=== PATIENT | female | born 1975 | race Caucasian/White ===

== ENCOUNTER 2017-12-20 15:02 | Emergency (ER) | payer BC, SELFPAY ==
[2017-12-20 15:12] VITALS: BP 158/87; PULSE 99; RESP 18; TEMP 36.9; O2SAT 100; BMI 30.2
--- NOTE | 2017-12-20 15:29 | ED.NEUROSD ---
HPI - Neuro Symptoms/Deficit <GLENIS Machuca - Last Filed: 12/20/17 21:49> General Chief Complaint: Neuro Symptoms/Deficit Stated Complaint: RT SIDED NUMBNESS Time Seen by Provider: 12/20/17 15:29 History of Present Illness HPI Narrative: 42-year-old female here for complaint of having tingling into her right arm and her right leg that has been going on for the last 4-5 days. She states that she had a manipulation completed by her chiropractor and shortly after her symptoms started. She is able to ambulate into the emergency room without complications. She denies any headache. She denies any neck pain. No chest pain no shortness of breath. She has full range of motion of all her extremities and her neck. No other concerns or complaints. She denies any stressors or relievers of her symptoms On Anticoagulants: No Related Data Home Medications Medication Instructions Recorded Confirmed No Known Home Medications 12/20/17 12/20/17 Allergies Allergy/AdvReac Type Severity Reaction Status Date / Time No Known Drug Allergies Allergy Verified 12/20/17 15:14 Review of Systems <GLENIS Machuca - Last Filed: 12/20/17 21:49> Review of Systems Constitutional Denies chills, Denies fever(s), Denies lethargy and Denies weakness Eyes Denies change in vision, Denies eye discharge, Denies irritation and Denies loss of vision ENT Ears, Nose, Mouth, and Throat: Denies change in voice, Denies neck pain and Denies sore throat Cardiovascular Denies chest pain, Denies irregular heart rhythm, Denies lightheadedness, Denies palpitations, Denies dyspnea, Denies dyspnea on exertion and Denies orthopnea Respiratory Denies cough, Denies dyspnea, Denies dyspnea on exertion and Denies wheezing Gastrointestinal Gastrointestinal: Denies abdominal pain, Denies change in bowel habits, Denies diarrhea, Denies nausea and Denies vomiting Genitourinary Denies hematuria, Denies flank pain, Denies urinary incontinence and Denies urinary urgency Musculoskeletal Denies neck pain Comments: Tingling to right upper and right lower extremity Integumentary/Breasts Denies pruritus, Denies erythema, Denies rash and Denies wounds Neurologic Denies confusion, Denies loss of vision and Denies weakness Psychiatric Denies anxiety, Denies confusion, Denies depression, Denies homicidal ideation and Denies suicidal ideation Endocrine Denies palpitations Allergic/Immunologic Denies wheezing Exam <GLENIS Machuca - Last Filed: 12/20/17 21:49> Initial Vital Signs Initial Vital Signs: Vital Signs Temperature 98.4 F 12/20/17 15:12 Pulse Rate 99 H 12/20/17 15:12 Respiratory Rate 18 12/20/17 15:12 Blood Pressure 158/87 H 12/20/17 15:12 Pulse Oximetry 100 12/20/17 15:12 Const General: cooperative and well developed Nutritional Appearance: well nourished Orientation: alert, awake, oriented x3 and not confused HENMT Head: normal to inspection, normocephalic and atraumatic Ears: external ears normal and TM's normal bilaterally Mouth: oral mucosae normal, oropharynx normal and moist mucous membranes Teeth and gingiva: dentition normal Throat: posterior oropharynx normal Eyes Conjunctivae: conjunctivae normal Sclera: sclerae normal Pupils: PERRL EOM: EOM intact bilaterally Neck Neck: normal visual inspection, trachea midline, No lymphadenopathy, No midline deformity and No JVD Lymphatic: No lymphedema Chest Chest: normal inspection of the chest Resp Effort & Inspection: normal respiratory effort, able to speak in complete sentences, no respiratory distress and no use of accessory muscles Auscultation: clear to auscultation bilaterally, no rales, no rhonchi and no wheezes Cardio Rate: regular rate Rhythm: regular rhythm Heart Sounds: no click, no gallops, no murmurs and no rubs Pulses: normal peripheral pulses Skin General: no rashes or lesions noted, No jaundice and No petechiae Neuro General: alert, awake, oriented x3, no focal motor deficits and CN's II-XI intact bilaterally Cognition: normal cognition Speech: speech normal Gait: normal gait Motor: muscle tone normal throughout Sensory Exam: no sensory deficits noted DTR's: Rt Patellar: 1+ and Lt Patellar: 1+ Extrem Other: Distal sensation to all 4 extremities is intact. Distal pulses are intact. Full range of motion to all 4 extremities. <Gera Flores DO - Last Filed: 12/21/17 07:16> Initial Vital Signs Initial Vital Signs: Vital Signs Temperature 98.4 F 12/20/17 15:12 Pulse Rate 99 H 12/20/17 15:12 Respiratory Rate 18 12/20/17 15:12 Blood Pressure 158/87 H 12/20/17 15:12 Pulse Oximetry 100 12/20/17 15:12 Course <GLENIS Machuca - Last Filed: 12/20/17 21:49> Orders Ordered: Discontinued Medications Sodium Chloride (Normal Saline 0.9%) 1,000 mls @ 150 mls/hr IV CONT MOHINDER Last Infusion: 12/20/17 17:43 Dose: 150 mls/hr Admin: 12/20/17 16:13 Dose: 150 mls/hr Vital Signs - 8 hr 12/20/17 15:12 12/20/17 16:16 12/20/17 17:22 Temperature 98.4 F Pulse Rate 99 H 92 H 63 Respiratory Rate 18 Blood Pressure 158/87 H Blood Pressure [Right Arm] 125/99 H 117/69 Pulse Oximetry 100 98 99 <Gera Flores DO - Last Filed: 12/21/17 07:16> Orders Ordered: Discontinued Medications Sodium Chloride (Normal Saline 0.9%) 1,000 mls @ 150 mls/hr IV CONT MOHINDER Last Infusion: 12/20/17 17:43 Dose: 150 mls/hr Admin: 12/20/17 16:13 Dose: 150 mls/hr Vital Signs - 8 hr 12/20/17 15:12 12/20/17 16:16 12/20/17 17:22 Temperature 98.4 F Pulse Rate 99 H 92 H 63 Respiratory Rate 18 Blood Pressure 158/87 H Blood Pressure [Right Arm] 125/99 H 117/69 Pulse Oximetry 100 98 99 MDM - Neuro Symptoms/Deficit <GLENIS Machuca - Last Filed: 12/20/17 21:49> Lab Data Result diagrams: 12/20/17 15:50 12/20/17 15:50 Lab Results 12/20/17 12/20/17 Range/Units 15:50 15:50 WBC 11.1 H (4.5-11.0) X10^3/uL RBC 4.68 (4.0-5.2) X10^6/uL Hgb 14.2 (12.0-16.0) g/dL Hct 40.5 (36-46) % MCV 86.3 (80-100) fL MCH 30.2 (26-34) PG MCHC 35.0 (30-36) % RDW 12.4 (11.6-14.8) % Plt Count 258 (150-400) X10^3/uL Neut % (Auto) 70.6 (50-75) % Lymph % (Auto) 23.9 L (25-40) % [place] % (Auto) 4.1 (3-14) % Eos % (Auto) 0.8 L (2-4) % Baso % (Auto) 0.6 (0-2) % Neut # (Auto) 7900 H (1139-1114) /uL Sodium 145 (137-145) mmol/L Potassium 3.9 (3.4-5.1) mmol/L Chloride 108 H (98-107) mmol/L Carbon Dioxide 26 (22-32) mmol/L BUN 12 (7-17) mg/dL Creatinine 0.80 (0.52-1.04) mg/dL Estimated GFR > 60.0 (>60) mL/min BUN/Creatinine Ratio 15.0 (6-22) Glucose 91 (70-100) mg/dL Calcium 9.8 (8.4-10.2) mg/dL Total Bilirubin 0.7 (0.2-1.3) mg/dL AST 18 (14-36) IU/L ALT 22 (9-52) IU/L Alkaline Phosphatase 61 (38-126) U/L Total Creatine Kinase 62 (30-135) U/L Troponin I < 0.012 (0.01-0.034) ng/mL Total Protein 7.5 (6.3-8.2) g/dL Albumin 4.4 (3.5-5.0) g/dL Globulin 3.1 (1.7-4.1) g/dL Albumin/Globulin Ratio 1.4 (1.0-2.8) Imaging Data Chest x-ray: Radiologist's impression: Signed Patient: Shanel Nieves MR#: [id number] : 1975 Acct:[id number] Age/Sex: 42 / F Date of Service: 12/20/17 Loc: ED Accession Number: [id number] Procedure: XR chest 1V Ordering Provider: León Degroot PROCEDURE: XR CHEST 1V INDICATIONS: Tingling to right arm and right leg TECHNIQUE: One view of the chest was acquired. COMPARISON: None. FINDINGS: Surgical changes and devices: None. Lungs and pleura: No pleural effusions or pneumothorax. Lungs are clear. Mediastinum: Mediastinal contours appear normal. Heart size is normal. Bones and chest wall: No suspicious bony lesions. The minimal spondylosis T7-8 and T9-10 on the right, T8-T9 on the left. Overlying soft tissues appear unremarkable. IMPRESSION: No acute cardiopulmonary abnormality. Mild thoracic degenerative change. Dictated by: Obinna Sierra M.D. on 12/20/2017 at 15:49 Approved by: Obinna Sierra M.D. on 12/20/2017 at 15:51 CT scan - head: Radiologist's impression: PROCEDURE: CT ANGIO HEAD AND NECK INDICATIONS: Tingling to right arm and right leg TECHNIQUE: Pre-contrast 4.5 mm thick sections acquired from the foramen magnum to the vertex. After the administration of intravenous contrast, 1 mm thick sections acquired from the aortic arch through the [place] of [place]. Post-contrast 4.5 mm thick sections then re-acquired from the foramen magnum to the vertex. 3-dimensional lxlwaew-tjtabzkgg-iahsjzuhkm (MIP) and/or volume rendering reformats were acquired of the central intracranial vasculature and neck separately. COMPARISON: None. FINDINGS: Image quality: Excellent. BRAIN: CSF spaces: Ventricles are normal in size and shape. Basal cisterns are patent. No extra-axial fluid collections. Brain: No midline shift. No intracranial bleeds or masses. Mauricio-white matter interface appears intact. Skull and face: Calvarium and facial bones appear intact, without suspicious lesions. Orbits appear normal. Sinuses: Sinuses and mastoids are clear. HEAD CT ANGIOGRAPHY: Anterior circulation: Intracranial internal carotid arteries are normal in size and flow. The flow within the paired anterior cerebral arteries is normal and symmetric. The flow within the middle cerebral arteries is normal and symmetric. The anterior communicating artery is seen. No aneurysms are seen. Posterior circulation: Visualized portions of the vertebral arteries demonstrate normal caliber, and join to form a normal appearing basilar artery. Flow within the posterior cerebral arteries is normal and symmetric. No aneurysms are seen. NECK CT ANGIOGRAPHY: Carotid system: The great vessels demonstrate a conventional anatomy as they arise from the aortic arch. The origins of the common carotid arteries appear patent. The common carotid arteries demonstrate normal caliber and courses. The bifurcation regions are both widely patent. The internal carotid arteries demonstrate normal calibers and courses. Posterior circulation: The origins of the vertebral arteries both appear widely patent. The more superior extracranial portions of both vertebral arteries also demonstrate normal courses and calibers. They join to form a normal appearing basilar artery. Soft tissues: Visualized neck soft tissues demonstrate no suspicious abnormalities. Bones: No suspicious bony lesions. Visualized cervical spine appears normally aligned. IMPRESSION: 1. No acute intracranial process. 2. No areas of hemodynamically significant stenosis, vascular occlusion or aneurysmal dilation within the anterior circulation. 3. No areas of hemodynamically significant stenosis, vascular occlusion or aneurysmal dilation within the posterior circulation. 4. No areas of hemodynamically significant stenosis, vascular occlusion or aneurysmal dilation within the neck vasculature. Any quantitative measurements of stenosis were performed using NASCET criteria. Dictated by: Catalina Berumen M.D. on 12/20/2017 at 16:54 Approved by: Catalina Berumen M.D. on 12/20/2017 at 17:00 ECG Data Interpretation: EKG shows normal sinus rhythm with no ST elevation or depression. No ectopy. Ventricular rate is 79. Pr interval 146. QRS duration 92. QTC of 381 MDM Narrative Medical decision making narrative: CBC shows slightly elevated white count at 11 K otherwise was unremarkable. Chem panel was also unremarkable. Troponin was obtained and was negative. EKG shows normal sinus rhythm with no ST elevation or depression. Chest x-ray was obtained and was negative for any acute findings. CT a of head and neck were obtained and were negative for any acute findings. No emergent cause of her tingling to her right arm and leg are seen recommend following up with primary care provider. If continued symptoms MRI of neck and lumbar spine may be needed. Will have her follow up with her primary care provider in the next several days. For any worsening symptoms return to the emergency room. [id number] Tylenol or Motrin as needed for discomfort. <Gera Flores, - Last Filed: 12/21/17 07:16> Lab Data Lab Results 12/20/17 12/20/17 Range/Units 15:50 15:50 WBC 11.1 H (4.5-11.0) X10^3/uL RBC 4.68 (4.0-5.2) X10^6/uL Hgb 14.2 (12.0-16.0) g/dL Hct 40.5 (36-46) % MCV 86.3 (80-100) fL MCH 30.2 (26-34) PG MCHC 35.0 (30-36) % RDW 12.4 (11.6-14.8) % Plt Count 258 (150-400) X10^3/uL Neut % (Auto) 70.6 (50-75) % Lymph % (Auto) 23.9 L (25-40) % [place] % (Auto) 4.1 (3-14) % Eos % (Auto) 0.8 L (2-4) % Baso % (Auto) 0.6 (0-2) % Neut # (Auto) 7900 H (0424-5159) /uL Sodium 145 (137-145) mmol/L Potassium 3.9 (3.4-5.1) mmol/L Chloride 108 H (98-107) mmol/L Carbon Dioxide 26 (22-32) mmol/L BUN 12 (7-17) mg/dL Creatinine 0.80 (0.52-1.04) mg/dL Estimated GFR > 60.0 (>60) mL/min BUN/Creatinine Ratio 15.0 (6-22) Glucose 91 (70-100) mg/dL Calcium 9.8 (8.4-10.2) mg/dL Total Bilirubin 0.7 (0.2-1.3) mg/dL AST 18 (14-36) IU/L ALT 22 (9-52) IU/L Alkaline Phosphatase 61 (38-126) U/L Total Creatine Kinase 62 (30-135) U/L Troponin I < 0.012 (0.01-0.034) ng/mL Total Protein 7.5 (6.3-8.2) g/dL Albumin 4.4 (3.5-5.0) g/dL Globulin 3.1 (1.7-4.1) g/dL Albumin/Globulin Ratio 1.4 (1.0-2.8) Discharge Plan Departure Patient Disposition: Home, Self-Care Clinical Impression: Arm paresthesia, right, Paresthesia of right leg Discharge Date/Time: 12/20/17 17:32 Interventions: ED Discharge Assessment Last Done: 12/20/17 17:44 Instructions: DI for Numbness/tingling Activity Restrictions/Additional Instructions: Imaging EKG and laboratory results today were unremarkable. Use [id number] Tylenol Motrin as needed for any discomfort. Follow up with her primary care provider next week for further evaluation and treatment. If still having symptoms recommend having discussion with her primary care provider about ordering MRI to rule out radiculopathy as a cause of her symptoms. For any worsening symptoms return to the emergency room. Prescriptions: No Action No Known Home Medications RF: 0 Referrals: Harmeet Razo MD [Primary Care Provider] - <Gera Flores DO - Last Filed: 12/21/17 07:16> [facility] ED Attending Viralature Attestation: I was available for consultation during this patient's emergency department encounter
--- NOTE | 2017-12-20 15:57 | ED_ITS ---
HPI - Neuro Symptoms/Deficit <GLENIS Machuca - Last Filed: 12/20/17 21:49> General Chief Complaint: Neuro Symptoms/Deficit Stated Complaint: RT SIDED NUMBNESS Time Seen by Provider: 12/20/17 15:29 History of Present Illness HPI Narrative: 42-year-old female here for complaint of having tingling into her right arm and her right leg that has been going on for the last 4-5 days. She states that she had a manipulation completed by her chiropractor and shortly after her symptoms started. She is able to ambulate into the emergency room without complications. She denies any headache. She denies any neck pain. No chest pain no shortness of breath. She has full range of motion of all her extremities and her neck. No other concerns or complaints. She denies any stressors or relievers of her symptoms On Anticoagulants: No Related Data Home Medications Medication Instructions Recorded Confirmed No Known Home Medications 12/20/17 12/20/17 Allergies Allergy/AdvReac Type Severity Reaction Status Date / Time No Known Drug Allergies Allergy Verified 12/20/17 15:14 Review of Systems <GLENIS Machuca - Last Filed: 12/20/17 21:49> Review of Systems Constitutional Denies chills, Denies fever(s), Denies lethargy and Denies weakness Eyes Denies change in vision, Denies eye discharge, Denies irritation and Denies loss of vision ENT Ears, Nose, Mouth, and Throat: Denies change in voice, Denies neck pain and Denies sore throat Cardiovascular Denies chest pain, Denies irregular heart rhythm, Denies lightheadedness, Denies palpitations, Denies dyspnea, Denies dyspnea on exertion and Denies orthopnea Respiratory Denies cough, Denies dyspnea, Denies dyspnea on exertion and Denies wheezing Gastrointestinal Gastrointestinal: Denies abdominal pain, Denies change in bowel habits, Denies diarrhea, Denies nausea and Denies vomiting Genitourinary Denies hematuria, Denies flank pain, Denies urinary incontinence and Denies urinary urgency Musculoskeletal Denies neck pain Comments: Tingling to right upper and right lower extremity Integumentary/Breasts Denies pruritus, Denies erythema, Denies rash and Denies wounds Neurologic Denies confusion, Denies loss of vision and Denies weakness Psychiatric Denies anxiety, Denies confusion, Denies depression, Denies homicidal ideation and Denies suicidal ideation Endocrine Denies palpitations Allergic/Immunologic Denies wheezing Exam <GLENIS Machuca - Last Filed: 12/20/17 21:49> Initial Vital Signs Initial Vital Signs: Vital Signs Temperature 98.4 F 12/20/17 15:12 Pulse Rate 99 H 12/20/17 15:12 Respiratory Rate 18 12/20/17 15:12 Blood Pressure 158/87 H 12/20/17 15:12 Pulse Oximetry 100 12/20/17 15:12 Const General: cooperative and well developed Nutritional Appearance: well nourished Orientation: alert, awake, oriented x3 and not confused HENMT Head: normal to inspection, normocephalic and atraumatic Ears: external ears normal and TM's normal bilaterally Mouth: oral mucosae normal, oropharynx normal and moist mucous membranes Teeth and gingiva: dentition normal Throat: posterior oropharynx normal Eyes Conjunctivae: conjunctivae normal Sclera: sclerae normal Pupils: PERRL EOM: EOM intact bilaterally Neck Neck: normal visual inspection, trachea midline, No lymphadenopathy, No midline deformity and No JVD Lymphatic: No lymphedema Chest Chest: normal inspection of the chest Resp Effort & Inspection: normal respiratory effort, able to speak in complete sentences, no respiratory distress and no use of accessory muscles Auscultation: clear to auscultation bilaterally, no rales, no rhonchi and no wheezes Cardio Rate: regular rate Rhythm: regular rhythm Heart Sounds: no click, no gallops, no murmurs and no rubs Pulses: normal peripheral pulses Skin General: no rashes or lesions noted, No jaundice and No petechiae Neuro General: alert, awake, oriented x3, no focal motor deficits and CN's II-XI intact bilaterally Cognition: normal cognition Speech: speech normal Gait: normal gait Motor: muscle tone normal throughout Sensory Exam: no sensory deficits noted DTR's: Rt Patellar: 1+ and Lt Patellar: 1+ Extrem Other: Distal sensation to all 4 extremities is intact. Distal pulses are intact. Full range of motion to all 4 extremities. <Gera Flores DO - Last Filed: 12/21/17 07:16> Initial Vital Signs Initial Vital Signs: Vital Signs Temperature 98.4 F 12/20/17 15:12 Pulse Rate 99 H 12/20/17 15:12 Respiratory Rate 18 12/20/17 15:12 Blood Pressure 158/87 H 12/20/17 15:12 Pulse Oximetry 100 12/20/17 15:12 Course <GLENIS Machuca - Last Filed: 12/20/17 21:49> Orders Ordered: Discontinued Medications Sodium Chloride (Normal Saline 0.9%) 1,000 mls @ 150 mls/hr IV CONT MOHINDER Last Infusion: 12/20/17 17:43 Dose: 150 mls/hr Admin: 12/20/17 16:13 Dose: 150 mls/hr Vital Signs - 8 hr 12/20/17 15:12 12/20/17 16:16 12/20/17 17:22 Temperature 98.4 F Pulse Rate 99 H 92 H 63 Respiratory Rate 18 Blood Pressure 158/87 H Blood Pressure [Right Arm] 125/99 H 117/69 Pulse Oximetry 100 98 99 <Gera Flores DO - Last Filed: 12/21/17 07:16> Orders Ordered: Discontinued Medications Sodium Chloride (Normal Saline 0.9%) 1,000 mls @ 150 mls/hr IV CONT MOHINDER Last Infusion: 12/20/17 17:43 Dose: 150 mls/hr Admin: 12/20/17 16:13 Dose: 150 mls/hr Vital Signs - 8 hr 12/20/17 15:12 12/20/17 16:16 12/20/17 17:22 Temperature 98.4 F Pulse Rate 99 H 92 H 63 Respiratory Rate 18 Blood Pressure 158/87 H Blood Pressure [Right Arm] 125/99 H 117/69 Pulse Oximetry 100 98 99 MDM - Neuro Symptoms/Deficit <GLENIS Machuca - Last Filed: 12/20/17 21:49> Lab Data Result diagrams: 12/20/17 15:50 12/20/17 15:50 Lab Results 12/20/17 12/20/17 Range/Units 15:50 15:50 WBC 11.1 H (4.5-11.0) X10^3/uL RBC 4.68 (4.0-5.2) X10^6/uL Hgb 14.2 (12.0-16.0) g/dL Hct 40.5 (36-46) % MCV 86.3 (80-100) fL MCH 30.2 (26-34) PG MCHC 35.0 (30-36) % RDW 12.4 (11.6-14.8) % Plt Count 258 (150-400) X10^3/uL Neut % (Auto) 70.6 (50-75) % Lymph % (Auto) 23.9 L (25-40) % [place] % (Auto) 4.1 (3-14) % Eos % (Auto) 0.8 L (2-4) % Baso % (Auto) 0.6 (0-2) % Neut # (Auto) 7900 H (6940-8733) /uL Sodium 145 (137-145) mmol/L Potassium 3.9 (3.4-5.1) mmol/L Chloride 108 H (98-107) mmol/L Carbon Dioxide 26 (22-32) mmol/L BUN 12 (7-17) mg/dL Creatinine 0.80 (0.52-1.04) mg/dL Estimated GFR > 60.0 (>60) mL/min BUN/Creatinine Ratio 15.0 (6-22) Glucose 91 (70-100) mg/dL Calcium 9.8 (8.4-10.2) mg/dL Total Bilirubin 0.7 (0.2-1.3) mg/dL AST 18 (14-36) IU/L ALT 22 (9-52) IU/L Alkaline Phosphatase 61 (38-126) U/L Total Creatine Kinase 62 (30-135) U/L Troponin I < 0.012 (0.01-0.034) ng/mL Total Protein 7.5 (6.3-8.2) g/dL Albumin 4.4 (3.5-5.0) g/dL Globulin 3.1 (1.7-4.1) g/dL Albumin/Globulin Ratio 1.4 (1.0-2.8) Imaging Data Chest x-ray: Radiologist's impression: Signed Patient: Shanel Nieves MR#: [id number] : 1975 Acct:[id number] Age/Sex: 42 / F Date of Service: 12/20/17 Loc: ED Accession Number: [id number] Procedure: XR chest 1V Ordering Provider: León Degroot PROCEDURE: XR CHEST 1V INDICATIONS: Tingling to right arm and right leg TECHNIQUE: One view of the chest was acquired. COMPARISON: None. FINDINGS: Surgical changes and devices: None. Lungs and pleura: No pleural effusions or pneumothorax. Lungs are clear. Mediastinum: Mediastinal contours appear normal. Heart size is normal. Bones and chest wall: No suspicious bony lesions. The minimal spondylosis T7-8 and T9-10 on the right, T8-T9 on the left. Overlying soft tissues appear unremarkable. IMPRESSION: No acute cardiopulmonary abnormality. Mild thoracic degenerative change. Dictated by: Obinna Sierra M.D. on 12/20/2017 at 15:49 Approved by: Obinna Sierra M.D. on 12/20/2017 at 15:51 CT scan - head: Radiologist's impression: PROCEDURE: CT ANGIO HEAD AND NECK INDICATIONS: Tingling to right arm and right leg TECHNIQUE: Pre-contrast 4.5 mm thick sections acquired from the foramen magnum to the vertex. After the administration of intravenous contrast, 1 mm thick sections acquired from the aortic arch through the [place]. Post-contrast 4.5 mm thick sections then re- acquired from the foramen magnum to the vertex. 3-dimensional maximum-intensity- projection (MIP) and/or volume rendering reformats were acquired of the central intracranial vasculature and neck separately. COMPARISON: None. FINDINGS: Image quality: Excellent. BRAIN: CSF spaces: Ventricles are normal in size and shape. Basal cisterns are patent. No extra-axial fluid collections. Brain: No midline shift. No intracranial bleeds or masses. Mauricio-white matter interface appears intact. Skull and face: Calvarium and facial bones appear intact, without suspicious lesions. Orbits appear normal. Sinuses: Sinuses and mastoids are clear. HEAD CT ANGIOGRAPHY: Anterior circulation: Intracranial internal carotid arteries are normal in size and flow. The flow within the paired anterior cerebral arteries is normal and symmetric. The flow within the middle cerebral arteries is normal and symmetric. The anterior communicating artery is seen. No aneurysms are seen. Posterior circulation: Visualized portions of the vertebral arteries demonstrate normal caliber, and join to form a normal appearing basilar artery. Flow within the posterior cerebral arteries is normal and symmetric. No aneurysms are seen. NECK CT ANGIOGRAPHY: Carotid system: The great vessels demonstrate a conventional anatomy as they arise from the aortic arch. The origins of the common carotid arteries appear patent. The common carotid arteries demonstrate normal caliber and courses. The bifurcation regions are both widely patent. The internal carotid arteries demonstrate normal calibers and courses. Posterior circulation: The origins of the vertebral arteries both appear widely patent. The more superior extracranial portions of both vertebral arteries also demonstrate normal courses and calibers. They join to form a normal appearing basilar artery. Soft tissues: Visualized neck soft tissues demonstrate no suspicious abnormalities. Bones: No suspicious bony lesions. Visualized cervical spine appears normally aligned. IMPRESSION: 1. No acute intracranial process. 2. No areas of hemodynamically significant stenosis, vascular occlusion or aneurysmal dilation within the anterior circulation. 3. No areas of hemodynamically significant stenosis, vascular occlusion or aneurysmal dilation within the posterior circulation. 4. No areas of hemodynamically significant stenosis, vascular occlusion or aneurysmal dilation within the neck vasculature. Any quantitative measurements of stenosis were performed using NASCET criteria. Dictated by: Catalina Berumen M.D. on 12/20/2017 at 16:54 Approved by: Catalina Berumen M.D. on 12/20/2017 at 17:00 ECG Data Interpretation: EKG shows normal sinus rhythm with no ST elevation or depression. No ectopy. Ventricular rate is 79. Pr interval 146. QRS duration 92. QTC of 381 MDM Narrative Medical decision making narrative: CBC shows slightly elevated white count at 11 K otherwise was unremarkable. Chem panel was also unremarkable. Troponin was obtained and was negative. EKG shows normal sinus rhythm with no ST elevation or depression. Chest x-ray was obtained and was negative for any acute findings. CT a of head and neck were obtained and were negative for any acute findings. No emergent cause of her tingling to her right arm and leg are seen recommend following up with primary care provider. If continued symptoms MRI of neck and lumbar spine may be needed. Will have her follow up with her primary care provider in the next several days. For any worsening symptoms return to the emergency room. Oovy-ers-rrvxlat Tylenol or Motrin as needed for discomfort. <Gera Flores, - Last Filed: 12/21/17 07:16> Lab Data Lab Results 12/20/17 12/20/17 Range/Units 15:50 15:50 WBC 11.1 H (4.5-11.0) X10^3/uL RBC 4.68 (4.0-5.2) X10^6/uL Hgb 14.2 (12.0-16.0) g/dL Hct 40.5 (36-46) % MCV 86.3 (80-100) fL MCH 30.2 (26-34) PG MCHC 35.0 (30-36) % RDW 12.4 (11.6-14.8) % Plt Count 258 (150-400) X10^3/uL Neut % (Auto) 70.6 (50-75) % Lymph % (Auto) 23.9 L (25-40) % [place] % (Auto) 4.1 (3-14) % Eos % (Auto) 0.8 L (2-4) % Baso % (Auto) 0.6 (0-2) % Neut # (Auto) 7900 H (4141-2979) /uL Sodium 145 (137-145) mmol/L Potassium 3.9 (3.4-5.1) mmol/L Chloride 108 H (98-107) mmol/L Carbon Dioxide 26 (22-32) mmol/L BUN 12 (7-17) mg/dL Creatinine 0.80 (0.52-1.04) mg/dL Estimated GFR > 60.0 (>60) mL/min BUN/Creatinine Ratio 15.0 (6-22) Glucose 91 (70-100) mg/dL Calcium 9.8 (8.4-10.2) mg/dL Total Bilirubin 0.7 (0.2-1.3) mg/dL AST 18 (14-36) IU/L ALT 22 (9-52) IU/L Alkaline Phosphatase 61 (38-126) U/L Total Creatine Kinase 62 (30-135) U/L Troponin I < 0.012 (0.01-0.034) ng/mL Total Protein 7.5 (6.3-8.2) g/dL Albumin 4.4 (3.5-5.0) g/dL Globulin 3.1 (1.7-4.1) g/dL Albumin/Globulin Ratio 1.4 (1.0-2.8) Discharge Plan Departure Patient Disposition: Home, Self-Care Clinical Impression: Arm paresthesia, right, Paresthesia of right leg Discharge Date/Time: 12/20/17 17:32 Interventions: ED Discharge Assessment Last Done: 12/20/17 17:44 Instructions: DI for Numbness/tingling Activity Restrictions/Additional Instructions: Imaging EKG and laboratory results today were unremarkable. Use over-the- counter Tylenol Motrin as needed for any discomfort. Follow up with her primary care provider next week for further evaluation and treatment. If still having symptoms recommend having discussion with her primary care provider about ordering MRI to rule out radiculopathy as a cause of her symptoms. For any worsening symptoms return to the emergency room. Prescriptions: No Action No Known Home Medications RF: 0 Referrals: Harmeet Razo MD [Primary Care Provider] - <Gera Flores DO - Last Filed: 12/21/17 07:16> [facility] ED Attending Viralature Attestation: I was available for consultation during this patient's emergency department encounter
[2017-12-20 16:01] LABS: Add Manual Diff / Slide Review NO; Basophils Percent Auto 0.6 % (0-2); Eosinophils Percent Auto 0.8 % (2-4); Hematocrit 40.5 % (36-46); Hemoglobin 14.2 g/dL (12.0-16.0); Lymphocytes Percent Auto 23.9 % (25-40); Mean Corpuscular Hemoglobin 30.2 PG (26-34); Mean Corpuscular Volume 86.3 fL (80-100); Monocytes Percent Auto 4.1 % (3-14); Neutrophils Absolute Auto 7900 /uL (3000-5900); Neutrophils Percent Auto 70.6 % (50-75); Platelet Count 258 X10^3/uL (150-400); Red Blood Cell Count 4.68 X10^6/uL (4.0-5.2); Red Cell Distribution Width 12.4 % (11.6-14.8); White Blood Cell Count 11.1 X10^3/uL (4.5-11.0)
[2017-12-20 16:09] LABS: Alanine Aminotransferase 22 IU/L (9-52); Albumin 4.4 g/dL (3.5-5.0); Albumin Globulin Ratio 1.4 (1.0-2.8); Alkaline Phosphatase 61 U/L (38-126); Aspartate Aminotransferase 18 IU/L (14-36); Bilirubin Total 0.7 mg/dL (0.2-1.3); Blood Urea Nitrogen 12 mg/dL (7-17); Calcium 9.8 mg/dL (8.4-10.2); Carbon Dioxide 26 mmol/L (22-32); Chloride 108 mmol/L (98-107); Creatine Kinase 62 U/L (30-135); Estimated Glomerular Filt Rate > 60.0 mL/min (>60); Globulin 3.1 g/dL (1.7-4.1); Glucose 91 mg/dL (70-100); HEMOLYSIS < 15 (0-50); Potassium 3.9 mmol/L (3.4-5.1); Sodium 145 mmol/L (137-145); Total Protein 7.5 g/dL (6.3-8.2)
[2017-12-20] MEDS: SODIUM CHLORIDE 0.9% 1,000 ML 150 ML IV (16:13)
[2017-12-20 16:16] VITALS: BP 125/99; PULSE 92; O2SAT 98
[2017-12-20 16:22] LABS: Troponin I < 0.012 ng/mL (0.01-0.034)
[2017-12-20 17:22] VITALS: BP 117/69; PULSE 63; O2SAT 99
== END 2017-12-20 17:32 | disposition home or self-care (01) ==
PROVIDERS: Emergency Provider Nurse Practitioner Family; Family Provider Family Medicine; PCP Family Medicine
DX: R20.2 Paresthesia of skin (principal)
CPT/HCPCS: 36591; 70496; 70498; 71045; 80053; 81003; 81025; 82550; 82553; 84484; 85025; 93005; 93010; 96360; 99283; 99285; 99291; Q9967

== ENCOUNTER → 2018-02-21 09:36 | Outpatient (CLI) | payer BC, SELFPAY ==
--- NOTE | 2018-02-21 | DI.MRI.S_ITS ---
PROCEDURE: MR HEAD/BRAIN WO/W CON INDICATIONS: NUMBNESS AND TINGLING IN RIGHT HAND,RIGHT LEG FATI TECHNIQUE: Noncontrast axial T1 spin echo, axial T2 fast spin echo, sagittal and axial FLAIR, coronal T2 fast spin echo, axial gradient echo, axial diffusion and ADC through the brain. After the administration of contrast, axial and coronal 3D VIBE or T1 spin echo with fat saturation through the brain. COMPARISON: [facility], CT, CT ANGIO HEAD AND NECK, 12/20/2017, 16:21. FINDINGS: Image quality: Excellent. CSF Spaces: Basal cisterns are patent. No extra-axial fluid collections. Ventricles are normal in size and shape. Brain: No midline shift. No intracranial bleeds or masses. No abnormal intracranial enhancement. The brainstem appears normal. Diffusion-weighted images demonstrate no acute ischemic insults. No chronic ischemic insults. Normal intravascular flow voids are present. Skull and face: Calvarial marrow is normal in signal. Orbits appear normal. Sinuses: Sinuses and mastoids appear clear. IMPRESSION: Normal brain MRI exam. Dictated by: Eliza Muñiz M.D. on 02/21/2018 at 11:28 Approved by: Eliza Muñiz M.D. on 02/21/2018 at 11:46
--- NOTE | 2018-02-21 | DI.MRI.S_ITS ---
PROCEDURE: MR CERVICAL SPINE WO/W CON INDICATIONS: NUMBNESS AND TINGLING IN RIGHT HAND,RIGHT LEG FATI TECHNIQUE: Noncontrast sagittal T1 spin echo and T2 fast spin echo, sagittal STIR, sagittal PD fast spin echo, foraminal oblique sagittal T2 fast spin echo, axial gradient echo or T2 fast spin echo through the cervical spine. After the administration of contrast, sagittal and axial T1 spin echo with fat saturation through the cervical spine. COMPARISON: None. FINDINGS: Image quality: Excellent. Alignment and curvature: There is loss of normal cervical lordosis with mild focal kyphosis at C4-C5. There is otherwise normal bony alignment. Marrow: Marrow demonstrates normal overall signal. Spinal cord: Visualized spinal cord is normal in size, without white matter lesions. No suspicious intramedullary enhancement. No cerebellar tonsillar herniation. Paraspinous soft tissues: No paravertebral masses or suspicious enhancement. C2-C3: Normal appearance. C3-C4: Normal appearance. C4-C5: Mild loss of disc height and disc desiccation. There is diffuse posterior disc bulge and disc osteophyte complex. There is superimposed left posterior-lateral disc protrusion. The central canal is moderately narrowed. There is flattening of the ventral cord on the left. Qaxz-uz-sxydmbew left foraminal stenosis. No right foraminal stenosis. C5-C6: Mild loss of disc height and disc desiccation. There is diffuse posterior disc bulge and disc osteophyte complex. Uncovertebral hypertrophy bilaterally. The central canal is ezbt-mz-vmegntscxm narrowed. Mild bilateral foraminal stenosis. C6-C7: Preserved disc height with mild disc desiccation. Mild posterior disc bulge. No central canal or foraminal stenosis.. C7-T1: Normal appearance. IMPRESSION: 1. Multilevel degenerative disc disease and facet arthropathy as described, most marked at C4-C5. 2. Mild to moderate central canal stenosis at C4-C5 and C5-C6. 3. Aogy-rb-ncggjxds foraminal stenosis at C4-C5 on the left and C5-C6 bilaterally. 4. Mild flattening of left anterior aspect of the cord at C4-C5. Dictated by: Eliza Muñiz M.D. on 02/21/2018 at 11:30 Transcribed by: YOLANDA on 02/21/2018 at 11:41 Approved by: Eliza Muñiz M.D. on 02/21/2018 at 11:49
== END ==
PROVIDERS: Family Provider Family Medicine; PCP Family Medicine; Visit Provider Family Medicine
DX: M50.322 Other cervical disc degeneration at C5-C6 level (principal); R20.0 Anesthesia of skin; M48.02 Spinal stenosis, cervical region; M47.812 Spondylosis without myelopathy or radiculopathy, cervical region
CPT/HCPCS: 70553; 72156; A9579

== ENCOUNTER → 2022-09-14 13:36 | Outpatient (CLI) | payer BC, SELFPAY ==
[2022-09-14 19:23] LABS: Add Manual Diff / Slide Review NO; Basophils Absolute Auto 100 /uL (0-100); Basophils Percent Auto 0.6 % (0-2); Eosinophils Absolute Auto 100 /uL (0-450); Eosinophils Percent Auto 1.2 % (2-4); Hematocrit 39.9 % (36-46); Hemoglobin 13.7 g/dL (12.0-16.0); Lymphocytes Absolute Auto 3300 /uL (1100-4500); Lymphocytes Percent Auto 33.7 % (25-40); Mean Corpuscular HGB Conc 34.3 % (30-36); Mean Corpuscular Hemoglobin 29.2 PG (26-34); Mean Corpuscular Volume 85.2 fL (80-100); Monocytes Absolute Auto 500 /uL (0-900); Monocytes Percent Auto 5.3 % (3-14); Neutrophils Absolute Auto 5800 /uL (1500-7000); Neutrophils Percent Auto 59.2 % (50-75); Platelet Count 313 X10^3/uL (150-400); Red Blood Cell Count 4.69 X10^6/uL (4.0-5.2); Red Cell Distribution Width 13.4 % (11.6-14.8); White Blood Cell Count 9.7 X10^3/uL (4.5-11.0)
[2022-09-14 20:11] LABS: TSH w/ Reflex to FT4 0.76 uIU/mL (0.47-4.68)
== END ==
PROVIDERS: Family Provider Family Medicine; PCP Family Medicine; Visit Provider Obstetrics & Gynecology
DX: N93.9 Abnormal uterine and vaginal bleeding, unspecified (principal)
CPT/HCPCS: 84443; 85025

== ENCOUNTER → 2024-02-07 11:45 | Outpatient (CLI) | payer OTHER, SELFPAY ==
[2024-02-07 19:45] LABS: Add Manual Diff / Slide Review NO; Basophils Absolute Auto 0 /uL (0-100); Basophils Percent Auto 0.5 % (0-2); Eosinophils Absolute Auto 100 /uL (0-450); Eosinophils Percent Auto 0.9 % (2-4); Hematocrit 43.4 % (36-46); Hemoglobin 14.9 g/dL (12.0-16.0); Lymphocytes Absolute Auto 2800 /uL (1100-4500); Lymphocytes Percent Auto 28.6 % (25-40); Mean Corpuscular HGB Conc 34.4 % (30-36); Mean Corpuscular Hemoglobin 29.6 PG (26-34); Mean Corpuscular Volume 86.2 fL (80-100); Monocytes Absolute Auto 500 /uL (0-900); Monocytes Percent Auto 5.1 % (3-14); Neutrophils Absolute Auto 6500 /uL (1500-7000); Neutrophils Percent Auto 64.9 % (50-75); Platelet Count 301 X10^3/uL (150-400); Red Blood Cell Count 5.04 X10^6/uL (4.0-5.2); Red Cell Distribution Width 13.7 % (11.6-14.8); White Blood Cell Count 9.9 X10^3/uL (4.5-11.0)
[2024-02-07 20:00] LABS: Alanine Aminotransferase 37 IU/L (<35); Albumin 4.7 g/dL (3.5-5.0); Albumin Globulin Ratio 1.6 (1.0-2.8); Alkaline Phosphatase 60 U/L (38-126); Aspartate Aminotransferase 41 IU/L (14-36); BUN Creatinine Ratio 9.8 (6-22); Blood Urea Nitrogen 9 mg/dL (7-17); C-Reactive Protein Quant 0.8 mg/dL (<1.0); Calcium 10.1 mg/dL (8.4-10.2); Carbon Dioxide 21 mmol/L (22-32); Chloride 110 mmol/L (98-107); Estimated Glomerular Filt Rate > 60 mL/min (>60); Glucose 85 mg/dL (70-100); Potassium 4.2 mmol/L (3.4-5.1); Sodium 141 mmol/L (137-145); Total Protein 7.7 g/dL (6.3-8.2)
[2024-02-07 20:01] LABS: HEMOLYSIS 66 (0-50)
[2024-02-07 20:10] LABS: Erythrocyte Sedimentation Rate 5 MM/HR (0-20)
[2024-02-07 20:15] LABS: Follicle Stimulating Hormone 30.5 mIU/mL
== END ==
PROVIDERS: Family Provider Family Medicine; PCP Family Medicine; Visit Provider Family Medicine
DX: R19.7 Diarrhea, unspecified (principal); F41.9 Anxiety disorder, unspecified; I10 Essential (primary) hypertension; R03.0 Elevated blood-pressure reading, without diagnosis of hypertension
CPT/HCPCS: 80053; 83001; 84443; 85025; 85651; 86140

== ENCOUNTER → 2024-02-08 14:12 | Outpatient (CLI) | payer OTHER, SELFPAY ==
[2024-02-08 20:46] LABS: Clostridium Difficile Tox PCR Positive for C. diff (Negative)
[2024-02-12 15:36] LABS: C difficie Toxins A and B, EIA Negative (Negative)
== END ==
PROVIDERS: Family Provider Family Medicine; PCP Family Medicine; Visit Provider Family Medicine
DX: R19.7 Diarrhea, unspecified (principal)
CPT/HCPCS: 87177; 87205; 87324; 87493

== ENCOUNTER → 2024-04-10 14:28 | Outpatient (CLI) | payer OTHER, SELFPAY ==
[2024-04-10 18:59] LABS: Alanine Aminotransferase 21 IU/L (<35); Albumin 4.1 g/dL (3.5-5.0); Albumin Globulin Ratio 1.2 (1.0-2.8); Alkaline Phosphatase 71 U/L (38-126); Aspartate Aminotransferase 79 IU/L (14-36); BUN Creatinine Ratio 16.5 (6-22); Bilirubin Total 0.6 mg/dL (0.2-1.3); Blood Urea Nitrogen 14 mg/dL (7-17); Calcium 9.5 mg/dL (8.4-10.2); Carbon Dioxide 29 mmol/L (22-32); Chloride 104 mmol/L (98-107); Estimated Glomerular Filt Rate > 60 mL/min (>60); Globulin 3.5 g/dL (1.7-4.1); Glucose 97 mg/dL (70-100); HEMOLYSIS 27 (0-50); Potassium 4.2 mmol/L (3.4-5.1); Sodium 139 mmol/L (137-145); Total Protein 7.6 g/dL (6.3-8.2)
[2024-04-10 19:10] LABS: Follicle Stimulating Hormone 54.8 mIU/mL
[2024-04-10 19:26] LABS: Estradiol, Total 26.7 pg/mL
[2024-04-10 19:30] LABS: Ferritin 28 ng/mL (6-137)
== END ==
PROVIDERS: Family Provider Family Medicine; PCP Family Medicine; Visit Provider Family Medicine
DX: N93.8 Other specified abnormal uterine and vaginal bleeding (principal); R23.2 Flushing; I10 Essential (primary) hypertension; R74.8 Abnormal levels of other serum enzymes
CPT/HCPCS: 80053; 82397; 82670; 82728; 83001

== ENCOUNTER → 2024-04-21 13:02 | Outpatient (CLI) | payer OTHER, SELFPAY ==
[2024-04-21 19:34] LABS: Cholesterol 245 mg/dL (140-199); HDL Cholesterol 46 mg/dL (40-60); LDL Cholesterol Calculated 172 mg/dL (<100); Triglycerides 135 mg/dL (35-150)
[2024-04-21 19:41] LABS: Hemoglobin A1C% w Est Avg Glu 5.2 % (4.0-6.0)
[2024-04-23 00:36] LABS: HBsAg Screen Negative (Negative); Hepatitis A Antibody IgM Negative (Negative); Hepatitis B Core Antibody IgM Negative (Negative); Hepatitis C Antibody Non Reactive (Non Reactive)
== END ==
PROVIDERS: Family Provider Family Medicine; PCP Family Medicine; Visit Provider Family Medicine
DX: Z13.6 Encounter for screening for cardiovascular disorders (principal); Z13.1 Encounter for screening for diabetes mellitus; R74.8 Abnormal levels of other serum enzymes; N93.8 Other specified abnormal uterine and vaginal bleeding; R23.2 Flushing; I10 Essential (primary) hypertension
CPT/HCPCS: 80061; 80074; 83036; 86038

== ENCOUNTER 2024-06-20 06:23 | Day surgery (SDC) | payer OTHER, SELFPAY ==
--- NOTE | 2024-06-20 | PATH_ITS ---
[facility] Accession Number: [id number] No. of containers..01 Tissue . 01 Material submitted: . rectum - RECTAL . 01 Diagnosis: A. RECTUM: Tubular adenoma. [facility] 06/23/2024 1540 Local . 01 Electronically signed: . David Zelaya MD, Pathologist NPI- [id number] . 01 Gross description: . RECTAL: Received in formalin is 1 fragment(s) of benitez, soft tissue measuring 0.7 x 0.7 x 0.4 cm submitted entirely in 1 cassette(s) /KEVIN 06/20/2024 2338 Local . 01 Pathologist provided ICD-10: Z12.11 . 01 CPT . 419349 Specimen Comment: A courtesy copy of this report has been sent to [facility] Performed at: [address] [id number] MD Tristin Rodriguez MD Phone: [phone]
[2024-06-20 07:29] VITALS: BP 155/99; PULSE 105; RESP 20; TEMP 36.2; O2SAT 98
--- NOTE | 2024-06-20 07:43 | P.HP_ITS ---
History of Present Illness History of Present Illness Date Patient Seen: 06/20/24 Time Patient Seen: 07:44 Chief complaint: Screening Colonoscopy Narrative: 49 yo WF, initial screening colonoscopy. No symptoms PFSH Medical History Zamzam-menopause HTN (hypertension) Surgical History History of third molar tooth extraction Status post tonsillectomy and adenoidectomy Social History Smoking Status: Never smoker alcohol intake: current additional social history: history of HTN -- was on medication -- now off -- HIGH for 1 yr PSHX: no surgeries OI for 20 yrs -- has mom and 3 teens here lives with: son is senior. 2 other children in college - visit her. 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 [employer] FHX: aunts with DM2 GM lymphoma no colon or breast cancer GM stroke, no ME no thyroid 01/2024 Meds Home Medications and Allergies Home Medications Medication Instructions Recorded Confirmed Type No Known Home Medications 06/20/24 06/20/24 History Allergies Allergy/AdvReac Type Severity Reaction Status Date / Time No Known Drug Allergies Allergy Verified 04/17/24 14:07 Review of Systems Review of Systems ROS: Yes All systems reviewed with the patient and are negative except as otherwise documented Exam Vital Signs (past 8 hours): - 06/20/24 07:29 Temperature 97.1 F L Pulse Rate 105 H Respiratory Rate 20 Blood Pressure 155/99 H Pulse Oximetry 98 Oxygen Delivery Method Room Air Oxygen Delivery Method Room Air Narrative Exam Narrative: Gen: NAD, sitting comfortably in bed, appears well HEENT: Sclera are anicteric, head is normocephalic and atraumatic, trachea is midline. CV: RRR, no JVD Resp: clear to auscultation bilaterally, equal chest wall movement bilaterally Abd: soft, nontender, normoactive bowel sounds Ext: no edema, full range of motion Neuro: Cranial nerves II-XII grossly intact, no focal deficits Skin: No erythema or ecchymosis Assessment & Plan Assessment and plan (1) Colon cancer screening: Status: Acute Assessment & Plan narrative: Patient presents for initial screening colonoscopy Risks, benefits, alternatives to colonoscopy explained, including but not limited to bowel perforation or other serious complication requiring surgery at less than 1 in 5000 colonoscopies, abdominal pain, cramping or bleeding and less than 1% of colonoscopies, and the chances that we find a diagnosis that would require further intervention of about 2%. Patient agrees to proceed. Time-Based Coding :: [TOTAL MINUTES] spent with patient and on the chart (including review of chart, obtaining history, exam, reviewing outside data, placing orders, documenting exam and treatment plan, and counseling patient) on [DATE].
--- NOTE | 2024-06-20 08:00 | PM.OP.COLON ---
Operative Date/Time/Diagnoses Date of procedure: 06/20/24 Time of procedure: 08:00 Pre-op diagnosis: Screening Post-op diagnosis: same (Rectal polyp) Procedure & Clinicians Study performed: Colonoscopy with cold snare polypectomy Same procedure as scheduled: Yes Indications: Colon screening Surgeon: Black Lopez Procedure Notes SCOAP/Timeout: Peripheral Procedure in detail: Time-out was performed. Mac was induced. Patient was placed in left lateral decubitus position. The perineum was inspected without any gross abnormality. Lubricated pediatric colonoscope was inserted and advanced to the cecum. The terminal ileum was intubated. The colonoscope was withdrawn slowly inspecting the circumference of the colon. Very small polyps may have been missed, prep quality was adequate. Located approximately 10 cm from the anal verge was an 8 mm polyp in the rectum. This was taken completely by cold snare and retrieved. Retroflexed view of the rectum showed small, non prolapsed nonbleeding internal hemorrhoids. The scope was withdrawn the patient was taken to PACU in good condition. Scope withdrawal time: 7 Sedation minutes: 11 Findings: polyp(s) Specimen(s): other (rectal polyp) Complications: none Impression: Benign-appearing polyp Post-procedure Recommendations: Colonoscopy in 5 years (Next colonoscopy in 5-7 years) Follow up: as needed Disposition: PACU
[2024-06-20 08:03] VITALS: BP 111/53; PULSE 81; RESP 14; TEMP 36.5; O2SAT 96
[2024-06-20 08:08] VITALS: BP 81/55; PULSE 89; RESP 20; O2SAT 97
[2024-06-20 08:13] VITALS: BP 119/84; PULSE 81; RESP 12; TEMP 37.1; O2SAT 96
== END 2024-06-20 08:33 | disposition home or self-care (01) ==
PROVIDERS: Family Provider Family Medicine; PCP Family Medicine; Referring Provider Surgery; Visit Provider Surgery
PROC: 0DJD8ZZ Inspection of Lower Intestinal Tract, Via Natural or Artificial Opening Endoscopic (ICD-10-PCS; CPT 45378; principal; 2024-06-20 07:45)
DX: Z12.11 Encounter for screening for malignant neoplasm of colon (principal); D12.8 Benign neoplasm of rectum
CPT/HCPCS: 45385; J2704